=== PATIENT | male | born 1975 | race African-American/Black ===

== ENCOUNTER 2025-05-08 11:49 | Emergency (ER) | payer OTHER, SELFPAY | END 2025-05-08 13:23 | disposition home or self-care (01) | LOC: CSHERS 11:49 | DX: S92.331D Displaced fracture of third metatarsal bone, right foot, subsequent encounter for fracture with routine healing (principal); S92.341D Displaced fracture of fourth metatarsal bone, right foot, subsequent encounter for fracture with routine healing; S92.351D Displaced fracture of fifth metatarsal bone, right foot, subsequent encounter for fracture with routine healing; I10 Essential (primary) hypertension; F17.210 Nicotine dependence, cigarettes, uncomplicated; Z91.198 Patient's noncompliance with other medical treatment and regimen for other reason; V00-Y99 External causes of morbidity | CPT/HCPCS: 99283 ==